=== PATIENT | female | born 1980 | race Hispanic/Latino ===

== ENCOUNTER → 2022-07-21 | Outpatient (CLI) | payer BC ==
[~2022-07-21] MED LIST: DIATRIZOATE MEGL/DIATRIZOA SOD 30 ML BTL PO ONE; IOPAMIDOL 370 MG/ML 100 ML INFUS..BTL INJ ONE; LEVOTHYROXINE112 MCG PO; ULTRACET TABLE1 EACH PO
== END ==
LOC: CT 07:31
PROVIDERS: ATTEND Surgery
DX: R19.09 Other intra-abdominal and pelvic swelling, mass and lump (principal)
CPT/HCPCS: 74177; Q9963; Q9967